=== PATIENT | female | born 1985 | race Two or more races ===

== ENCOUNTER 2018-10-03 08:30 | Day surgery (SDC) | payer OTHER ==
[2018-10-02 15:16] VITALS: BMI 36.8
[2018-10-03] MEDS ORDERED: ACETAMINOPHEN INJECTION 100 ML IVPB ONE (12:38)
[2018-10-03 13:26] LABS: CSF APPEARANCE CLEAR; CSF COLOR COLORLESS; CSF WBC 16
[2018-10-03 13:53] LABS: BF GLUCOSE (CSF ONLY) 57 mg/dL (40-70)
[2018-10-03 16:43] VITALS: BP 120/70; PULSE 60
[2018-10-03 18:03] VITALS: TEMP 97.8
== END 2018-10-03 17:15 | disposition home or self-care (01) ==
LOC: JRADIR 08:30
PROVIDERS: ATTEND Psychiatry & Neurology Neurology
PROC: 009U3ZX Drainage of Spinal Canal, Percutaneous Approach, Diagnostic (ICD-10-PCS; principal; 2018-10-03)
PROC: B01BZZZ Fluoroscopy of Spinal Cord (ICD-10-PCS; 2018-10-03)
DX: R51 Headache (principal)
CPT/HCPCS: 36415; 62272; 76000-TC-FY; 76098-TC-FY; 82945; 83916; 84157; 84703; 87899; J0131

== ENCOUNTER 2020-01-22 09:53 | Emergency (ER) | payer OTHER ==
[2020-01-22 10:00] VITALS: BMI 34.1
--- OUTSIDE RECORDS SUMMARY | 2020-01-22 10:20 | XMS ---
:1985 [facility] Care Team Providers Name Role Phone ED STAFF PHYSICIANMICHAELLE Unavailable Unavailable ED STAFF PHYSICIAN, STAFF Unavailable Unavailable Re-disclosure Warning The records that you are about to access may contain information from federally- assisted alcohol or drug abuse programs. If such information is present, then the following federally mandated warning applies: This information has been disclosed to you from records protected by federal confidentiality rules (42 CFR part 2). The federal rules prohibit you from making any further disclosure of this information unless further disclosure is expressly permitted by the written consent of the person to whom it pertains or as otherwise permitted by 42 CFR part 2. A general authorization for the release of medical or other information is NOT sufficient for this purpose. The Federal rules restrict any use of the information to criminally investigate or prosecute any alcohol or drug abuse patient.The records that you are about to access may contain highly sensitive health information, the redisclosure of which is protected by Article 27-F of the [facility] Public Health law. If you continue you may haveaccess to information: Regarding HIV / AIDS; Provided by facilities licensed or operated by the [facility] Office of Mental Health; or Provided by the [facility] Office for People With Developmental Disabilities. If such information is present, then the following [facility] mandated warning applies: This information has been disclosed to you from confidential records which are protected by state law. State law prohibits you from making any further disclosure of this information without the specific written consent of the person to whom it pertains, or as otherwise permitted by law. Any unauthorized further disclosure in violation of state law may result in a fine or shelter sentence or both. A general authorization for the release of medical or other information is NOT sufficient authorization for further disclosure. Encounters Encounter Providers Location Date Indications Data Source(s ) Emergency Attender: MICHAELLE ED H 03/17/2019 Ayan daja Cortez STAFF 12:08:00 PM EST Medical C enter PHYSICIANAttender: - 03/17/2019 STAFF ED STAFF 03:43:00 PM EST PHYSICIANAdmitter: MICHAELLE ED STAFF PHYSICIAN Patient discharged. Emergency H 12/06/2018 06:53:00 PM EDT - 019 [facility] 10:41:00 PM EDT Patient discharged. Medications Medication Brand Start Product Dose Route Administrative Pharmacy [facility] Indications Reaction Description Data Name Date Form Instructions Instructions Source(s) methylPREDN 1 complet [facility] ISolone 4 ed [place] mg Medical tablets,dos Center e pack, Ordered By: Ada Grace s: 1 package oral daily Clindamycin clinda 1 complet Deepak nt 300 MG Oral mycin ed [place] Capsule HCl Medical clindamycin 300 mg Center HCl 300 mg Capsul Capsule, e, Ordered By: Rickiee Rach d By: Rach Malloy, s: 1 PADire capsule ctions oral three : 1 times a day capsul e oral three times a day Insurance Providers Payer name Policy type Policy ID Covered Covered republican's Policy P dionte / Coverage republican ID relationship to [facility] type hughes CURRY LOOKK [id number] SP [id number] NON CAP CURRY W [id number] 01 [id number] 500 CURRY W [id number] 01 [id number] 500 Mitesh Vision [id number] S [id number] D Dental [id number] S [id number] 500 Dentaquest [facility] Medicaid [id number] S [id number] Regular Clinic Visit [facility] [id number] S [id number] [place] Medicaid Problems, Conditions, and Diagnoses Code Display Name Description Problem Effective Data Source (s) Type Dates Y99.9 Unspecified external UNSPECIFIED EXTERNAL Diagnosis 03/17 [facility] cause status CAUSE STATUS 12:08:00 PM Medical C enter EST Y92.[address] UNSP PLACE IN UNSP Diagnosis 019 [facility] unspecified NON-INSTITUT 12:08:00 PM Medical Ce nter non-institutional (PRIVATE) RESIDENCE EST (private) residence PLACE as the place of occurrence of the external cause Y93.9 Activity, unspecified ACTIVITY, UNSPECIFIED Diagnosis [facility] 12:08:00 PM Medical Cente r EST X58.XXX Exposure to other EXPOSURE TO OTHER Diagnosis 03/17/2019 [facility] A specified factors, SPECIFIED FACTORS, 12:08:00 PM Medical Center initial encounter INITIAL ENCOUNTER EST L01.00 Impetigo, unspecified IMPETIGO, UNSPECIFIED Diagnosis [facility] 12:08:00 PM Medical Cente r EST T45.0X5 Adverse effect of ADVERSE EFFECT OF Diagnosis 03/17/2019 [facility] A antiallergic and ANTIALLERGIC [facility]08[facility], ANTIEMETIC DRUGS, EST initial encounter INIT T44.3X5 Adverse effect of ADVERSE EFFECT OF Diagnosis 03/17/2019 [facility] A other PARASYMPATHOLYTICS 12:08:00 PM Medic al Center parasympatholytics AND SPASMOLYTICS, EST [anticholinergics and INIT antimuscarinics] and spasmolytics, initial encounter G43.909 Migraine, MIGRAINE, UNSP, NOT Diagnosis 12/06/2018 [facility] unspecified, not INTRACTABLE, WITHOUT 06:53:00 PM Medical Center intractable, without STATUS MIGRAINOSUS EDT status migrainosus R07.9 Chest pain, CHEST PAIN, Diagnosis 12/06/2018 [facility] unspecified UNSPECIFIED 06:53:[address] [facility] ter EDT E66.8 Other obesity Other obesity Diagnosis 06/28/2018 [facility] 03:55:27 PM ([facility]) Results ID Date Data Source Liver 03/17/2019 02:14:00 PM EST [facility] Profile.[id number] Name Value Range Interpretation Description Data Sup porting Code Source(s) Document(s ) Alkaline 38-126 <content [facility] phosphatase styleCode="Bold"> [place] [Enzymatic Alkaline Medical activity/volume] Phosphatase (ALP) Cente r in Serum or Plasma </content>66 IU/L<content styleCode="Italic s"> (38-126 IU/L)</content> Aspartate 14-36 <content [facility] aminotransferase styleCode="Bold"> John hs [Enzymatic Aspartate Medical activity/volume] Aminotransferase Center in Serum or Plasma (AST) </content>20 IU/L<content styleCode="Italic s"> (14-36 IU/L)</content> Alanine 7-30 <content [facility] aminotransferase styleCode="Bold"> John hs [Enzymatic Alanine Medical activity/volume] Aminotransferase Center in Serum or Plasma (ALT) </content>13 IU/L<content styleCode="Italic s"> (7-30 IU/L)</content> Albumin 3.5-5.0 <content Saint [Mass/volume] in styleCode="Bold"> John hs Serum or Plasma Albumin Medical </content>3.7 Center G/DL<content styleCode="Italic s"> (3.5-5.0 G/DL)</content> UNK 0.0-0.3 <content Saint styleCode="Bold"> [facility] Bilirubin, Direct Medical </content>< 0.2 Center MG/DL<content styleCode="Italic s"> (0.0-0.3 MG/DL)</content> Bilirubin.total 0.2-1.3 <content Saint [Mass/volume] in styleCode="Bold"> John hs Serum or Plasma Bilirubin Total Medical </content>0.4 Center MG/DL<content styleCode="Italic s"> (0.2-1.3 MG/DL)</content> ID Date Data Source HematologyRou.[id number] 03/17/2019 02:14:00 PM EST Deepak nt [facility] 0500 Name Value Range Interpretation Description Data Sup porting Code Source(s) Document(s ) Leukocytes 4.4-11.0 <content Saint [#/volume] in styleCode="Bold [place] Blood by ">White Blood Medical Automated count Cell Count Center </content>7.68 KCUMM<content styleCode="Ital ics"> (4.4-11.0 KCUMM)</content > Erythrocytes 4.0-5.1 <content Saint [#/volume] in styleCode="Bold [place] Blood by ">Red Blood Medical Automated count Cell Count Center </content>4.74 MCUMM<content styleCode="Ital ics"> (4.0-5.1 MCUMM)</content > Erythrocyte mean 26.0-34. <content [facility] corpuscular 0 styleCode="Bold [place] hemoglobin ">Mean Medical [Entitic mass] Corposcular Center by Automated Hemoglobin count </content>28.1 PG<content styleCode="Ital ics"> (26.0-34.0 PG)</content> Hematocrit 36.0-46. <content Saint [Volume 0 styleCode="Bold [place] Fraction] of ">Hematocrit Medical Blood by </content>40.6 Center Automated count %<content styleCode="Ital ics"> (36.0-46.0 %)</content> Erythrocyte mean 80.0-100 <content Saint corpuscular .0 styleCode="Bold [place] volume [Entitic ">Mean Medical volume] by Corpuscular Center Automated count Volume </content>85.7 FL<content styleCode="Ital ics"> (80.0-100.0 FL)</content> Hemoglobin 12.3-16. <content Saint [Mass/volume] in 0 styleCode="Bold [place] Blood ">Hemoglobin Medical </content>13.3 Center G/DL<content styleCode="Ital ics"> (12.3-16.0 G/DL)</content> Platelets 130-400 <content Saint [#/volume] in styleCode="Bold [place] Blood by ">Platelet Medical Automated count Count Center </content>244 KCUMM<content styleCode="Ital ics"> (130-400 KCUMM)</content > Erythrocyte 11.5-14. <content [facility] distribution 5 styleCode="Bold [place] width [Ratio] by ">Red Cell Medical Automated count Distribution Center Width </content>13.3 %<content styleCode="Ital ics"> (11.5-14.5 %)</content> Erythrocyte mean 32.0-37. <content [facility] corpuscular 0 styleCode="Bold [place] hemoglobin ">Mean Corpus. Medical concentration Hgb Center [Mass/volume] by Concentration Automated count (MCHC) </content>32.8 G/DL<content styleCode="Ital ics"> (32.0-37.0 G/DL)</content> Platelet mean 8.0-11.0 <content Saint volume [Entitic styleCode="Bold [place] volume] in Blood ">Mean Platelet Medical by Automated Volume Center count </content>9.9 FL<content styleCode="Ital ics"> (8.0-11.0 FL)</content> Lymphocytes 24.0-44. <content Saint [#/volume] in 0 styleCode="Bold [place] Blood by ">Lymphocyte Medical Automated count </content>27.5 Center %<content styleCode="Ital ics"> (24.0-44.0 %)</content> UNK 1.0-4.8 <content Saint styleCode="Bold [place] ">Lymphocyte Medical Count Center </content>2.11 KCUMM<content styleCode="Ital ics"> (1.0-4.8 KCUMM)</content > Neutrophils 36-66 <content Saint [#/volume] in styleCode="Bold [place] Blood by ">Neutrophil Medical Automated count </content>63.0 Center %<content styleCode="Ital ics"> (36-66 %)</content> UNK 1.6-7.3 <content Saint styleCode="Bold [place] ">Neutrophil Medical Count Center </content>4.84 KCUMM<content styleCode="Ital ics"> (1.6-7.3 KCUMM)</content > Monocytes 3.0-10.0 <content Saint [#/volume] in styleCode="Bold [place] Blood by ">Monocyte Medical Automated count </content>6.6 Center %<content styleCode="Ital ics"> (3.0-10.0 %)</content> UNK 0.0-0.6 <content Saint styleCode="Bold [place] ">Eosinophil Medical Count Center </content>0.16 KCUMM<content styleCode="Ital ics"> (0.0-0.6 KCUMM)</content > UNK 0.2-0.9 <content Saint styleCode="Bold [place] ">Monocyte Medical Count Center </content>0.51 KCUMM<content styleCode="Ital ics"> (0.2-0.9 KCUMM)</content > Basophils 0.0-1.0 <content Saint [#/volume] in styleCode="Bold [place] Blood by ">Basophil Medical Automated count </content>0.5 Center %<content styleCode="Ital ics"> (0.0-1.0 %)</content> Eosinophils 0-5.0 <content Saint [#/volume] in styleCode="Bold [place] Blood by ">Eosinophil Medical Automated count </content>2.1 Center %<content styleCode="Ital ics"> (0-5.0 %)</content> UNK 0.0 <content Saint styleCode="Bold [place] ">Nucleated Red Medical Blood Cell Center Count </content>0.00 KCUMM<content styleCode="Ital ics"> (0.0 KCUMM)</content > UNK 0.0-0.3 <content Saint styleCode="Bold [place] ">Basophil Medical Count Center </content>0.04 KCUMM<content styleCode="Ital ics"> (0.0-0.3 KCUMM)</content > UNK 0 <content Saint styleCode="Bold [place] ">Nucleated Red Medical Blood Cell Center </content>0.0 /100<content styleCode="Ital ics"> (0 /100)</content> UNK 0-0.1 <content Saint styleCode="Bold [place] ">Immature Medical Granulocyte Center Count </content>0.02 KCUMM<content styleCode="Ital ics"> (0-0.1 KCUMM)</content > UNK < 1 <content Saint styleCode="Bold [place] ">Immature Medical Granulocyte Center Ratio </content>0.3 %<content styleCode="Ital ics"> (< 1 %)</content> ID Date Data Source GFR(Creatinine).[id number] 03/17/2019 02:14:00 PM EST Deepak nt [facility] 0-0500 Name Value Range Interpretation Code Description Data Isa rce(s) Supporting Document(s ) UNK > 60 <content [facility] styleCode="Bold"> Medical Cent er EGFR </content>123 GFR<content styleCode="Italic s"> (> 60 GFR)</content> ID Date Data Source [facility].[id number] 03/17/2019 02:14:00 PM DARSHANA [facility] Name Value Range Interpretation Description Data Sup porting Code Source(s) Document(s ) Carbon dioxide, 22-30 <content Saint total styleCode="Bold"> Diego [Moles/volume] in Carbon Dioxide Medical Serum or Plasma </content>27 Center MEQ/L<content styleCode="Italic s"> (22-30 MEQ/L)</content> Sodium 137-145 <content Saint [Moles/volume] in styleCode="Bold"> Juve phs Serum or Plasma Sodium Medical </content>139 Center MEQ/L<content styleCode="Italic s"> (137-145 MEQ/L)</content> Chloride 98-107 <content Saint [Moles/volume] in styleCode="Bold"> Juve phs Serum or Plasma Chloride Medical </content>106 Center MEQ/L<content styleCode="Italic s"> (98-107 MEQ/L)</content> Potassium 3.5-5.3 <content Saint [Moles/volume] in styleCode="Bold"> Juve phs Serum or Plasma Potassium Medical </content>3.8 Center MEQ/L<content styleCode="Italic s"> (3.5-5.3 MEQ/L)</content> Creatinine 0.5-1.3 <content Saint [Mass/volume] in styleCode="Bold"> John hs Serum or Plasma Creatinine Medical </content>0.6 Center MG/DL<content styleCode="Italic s"> (0.5-1.3 MG/DL)</content> Glucose 74-106 <content Saint [Mass/volume] in styleCode="Bold"> John hs Serum or Plasma Glucose Medical </content>90 Center MG/DL<content styleCode="Italic s"> (74-106 MG/DL)</content> UNK 7-17 <content Saint styleCode="Bold"> Diego BUN </content>10 Medical MG/DL<content Center styleCode="Italic s"> (7-17 MG/DL)</content> Calcium 8.4-10. <content Saint [Mass/volume] in 2 styleCode="Bold"> John hs Serum or Plasma Calcium Medical </content>9.1 Center MG/DL<content styleCode="Italic s"> (8.4-10.2 MG/DL)</content> UNK > 60 <content Saint styleCode="Bold"> [place] EGFR Medical </content>123 Center GFR<content styleCode="Italic s"> (> 60 GFR)</content> Aspartate 14-36 <content Saint aminotransferase styleCode="Bold"> John hs [Enzymatic Aspartate Medical activity/volume] Aminotransferase Center in Serum or Plasma (AST) </content>20 IU/L<content styleCode="Italic s"> (14-36 IU/L)</content> Bilirubin.total 0.2-1.3 <content Saint [Mass/volume] in styleCode="Bold"> John hs Serum or Plasma Bilirubin Total Medical </content>0.4 Center MG/DL<content styleCode="Italic s"> (0.2-1.3 MG/DL)</content> Alanine 7-30 <content Saint aminotransferase styleCode="Bold"> John hs [Enzymatic Alanine Medical activity/volume] Aminotransferase Center in Serum or Plasma (ALT) </content>13 IU/L<content styleCode="Italic s"> (7-30 IU/L)</content> Alkaline 38-126 <content [facility] phosphatase styleCode="Bold"> [place] [Enzymatic Alkaline Medical activity/volume] Phosphatase (ALP) Cente r in Serum or Plasma </content>66 IU/L<content styleCode="Italic s"> (38-126 IU/L)</content> Albumin 3.5-5.0 <content Saint [Mass/volume] in styleCode="Bold"> John hs Serum or Plasma Albumin Medical </content>3.7 Center G/DL<content styleCode="Italic s"> (3.5-5.0 G/DL)</content> ID Date Data Source Microbiology.[id number] 03/17/2019 02:06:[address] [facility] 500 Name Value Range Interpretation Code Description Data Isa rce(s) Supporting Document(s ) UNK <item><content [facility] styleCode="Bold"> Medical [facility] er Culture Status </content>
<t able><tbody><tr>< td>Specimen Number:</td><td>[id number]</td></tr ><tr><td>Sample Collection Date/Time: </td><td>03/17/20 2:06 PM</td></tr><tr>< td>Specimen Source:</td><td>F MARCELLE</td></tr><tr> <td>Gram Stain:</td><td>MA [place] GRAM POSITIVE BACILLI </td></tr><tr><td >Culture Status:</td><td>P reliminary </td></tr><tr><td >Culture Report:</td><td>C ulture in progress </td></tr><tr><td >Wound Culture:</td><td> Collection Plate Date: 03/17/2019 14:22 </td></tr></tbody ></table></item> UNK <item><content [facility] styleCode="Bold"> Medical [facility] er Culture Report </content>
<t able><tbody><tr>< td>Specimen Number:</td><td>[id number]</td></tr ><tr><td>Sample Collection Date/Time: </td><td>03/17/20 2:06 PM</td></tr><tr>< td>Specimen Source:</td><td>F MARCELLE</td></tr><tr> <td>Wound Culture:</td><td> Collection Plate Date: 03/17/2019 14:22 </td></tr><tr><td >Culture Status:</td><td>P reliminary </td></tr><tr><td >Culture Report:</td><td>C ulture in progress </td></tr><tr><td >Gram Stain:</td><td>MA [place] GRAM POSITIVE BACILLI </td></tr></tbody ></table></item> ID Date Data Source Urinalysis.[id number] 12/06/2018 07:53:[address] [facility] 0 Name Value Range Interpretation Description Data Sup porting Code Source(s) Document(s ) UNK CLEAR <content Saint styleCode="[facility] d">Urine Medical Clarity Center </content>SARAH R <content styleCode="Ami lics"> (CLEAR )</content> Color of Urine YELLOW <content Saint styleCode="[facility] d">Color, Medical Urine Center </content>YELL OW <content styleCode="Ami lics"> (YELLOW )</content> Glucose NEGATIVE <content Saint [Mass/volume] styleCode="Christy Weekss in Urine by d">Urine Medical Test strip Glucose Center </content>NEGA TIVE MG/DL<content styleCode="Ami lics"> (NEGATIVE MG/DL)</conten t> UNK NEGATIVE <content Saint styleCode="Christy [place] d">Urine Medical Bilirubin Center </content>NEGA TIVE <content styleCode="Ami lics"> (NEGATIVE )</content> Specific 1.015-1.02 Above high <content Saint gravity of 5 normal styleCode="Christy [place] Urine by Test d">Urine Medical strip Specific Center [place] </content>>= 1.030 H<content styleCode="Ami lics"> (1.015-1.025 )</content> Ketones NEGATIVE <content Saint [Mass/volume] styleCode="Christy [place] in Urine by d">Urine Medical Test strip Ketone Center </content>NEGA TIVE MG/DL<content styleCode="Ami lics"> (NEGATIVE MG/DL)</conten t> Hemoglobin NEGATIVE <content Saint [Presence] in styleCode="Christy [place] Urine by Test d">Urine Blood Medical strip </content>NEGA Center TIVE <content styleCode="Ami lics"> (NEGATIVE )</content> Urobilinogen 0.2-1.0 <content Saint [Units/volume] styleCode="Christy [place] in Urine by d">Urine Medical Test strip Urobilinogen Center </content>0.2 MG/DL<content styleCode="Ami lics"> (0.2-1.0 MG/DL)</conten t> Leukocyte NEGATIVE <content Saint esterase styleCode="Christy [place] [Presence] in d">Urine Medical Urine by Test Leukocyte Center strip </content>NEGA TIVE <content styleCode="Ami lics"> (NEGATIVE )</content> Nitrite NEGATIVE <content Saint [Presence] in styleCode="Christy [place] Urine by Test d">Urine Medical strip Nitrite Center </content>NEGA TIVE <content styleCode="Ami lics"> (NEGATIVE )</content> Protein NEGATIVE <content Saint [Mass/volume] styleCode="Christy [place] in Urine by d">Urine Medical Test strip Protein Center </content>NEGA TIVE MG/DL<content styleCode="Ami lics"> (NEGATIVE MG/DL)</conten t> pH of Urine by 4.5-8.0 <content Saint Test strip styleCode="Christy [place] d">Urine pH Medical </content>6.0 Center <content styleCode="Ami lics"> (4.5-8.0 )</content> ID Date Data Source LIPID.[id number] 12/06/2018 07:49:00 PM EDT [facility] Name Value Range Interpretation Description Data Sup porting Code Source(s) Document(s ) UNK < 100 Above high normal <content Saint styleCode="Christy [place] d">LDL-Cholest Medical kash Center </content>109 MG/DL H<content styleCode="Ami lics"> (< 100 MG/DL)</conten t> Triglyceride < 150 <content Saint [Mass/volume] in styleCode="[facility] Serum or Plasma d">Triglycerid Medical es Center </content>64 MG/DL<content styleCode="Ami lics"> (< 150 MG/DL)</conten t> UNK > 60 <content Saint styleCode="[facility] d">HDL- Medical Cholesterol Center </content>71 MG/DL<content styleCode="Ami lics"> (> 60 MG/DL)</conten t> Cholesterol -<200 <content Saint [Mass/volume] in styleCode="[facility] Serum or Plasma d">Cholesterol Medical </content>193 Center MG/DL<content styleCode="Ami lics"> (-<200 MG/DL)</conten t> ID Date Data Source HematologyRou.[id number] 12/06/2018 07:49:00 PM EDT [facility] 0400 Name Value Range Interpretation Description Data Sup porting Code Source(s) Document(s ) Leukocytes 4.4-11.0 <content Saint [#/volume] in styleCode="Bold [place] Blood by ">White Blood Medical Automated count Cell Count Center </content>9.28 KCUMM<content styleCode="Ital ics"> (4.4-11.0 KCUMM)</content > Erythrocyte mean 80.0-100 <content Saint corpuscular .0 styleCode="Bold [place] volume [Entitic ">Mean Medical volume] by Corpuscular Center Automated count Volume </content>85.7 FL<content styleCode="Ital ics"> (80.0-100.0 FL)</content> Erythrocytes 4.0-5.1 <content Saint [#/volume] in styleCode="Bold [place] Blood by ">Red Blood Medical Automated count Cell Count Center </content>4.97 MCUMM<content styleCode="Ital ics"> (4.0-5.1 MCUMM)</content > Erythrocyte mean 26.0-34. <content Saint corpuscular 0 styleCode="Bold [place] hemoglobin ">Mean Medical [Entitic mass] Corposcular Center by Automated Hemoglobin count </content>27.8 PG<content styleCode="Ital ics"> (26.0-34.0 PG)</content> Hemoglobin 12.3-16. <content Saint [Mass/volume] in 0 styleCode="Bold [place] Blood ">Hemoglobin Medical </content>13.8 Center G/DL<content styleCode="Ital ics"> (12.3-16.0 G/DL)</content> Hematocrit 36.0-46. <content Saint [Volume 0 styleCode="Bold [place] Fraction] of ">Hematocrit Medical Blood by </content>42.6 Center Automated count %<content styleCode="Ital ics"> (36.0-46.0 %)</content> Erythrocyte 11.5-14. <content Saint distribution 5 styleCode="Bold [place] width [Ratio] by ">Red Cell Medical Automated count Distribution Center Width </content>13.5 %<content styleCode="Ital ics"> (11.5-14.5 %)</content> Platelets 130-400 <content Saint [#/volume] in styleCode="Bold [place] Blood by ">Platelet Medical Automated count Count Center </content>256 KCUMM<content styleCode="Ital ics"> (130-400 KCUMM)</content > Platelet mean 8.0-11.0 <content Saint volume [Entitic styleCode="Bold [place] volume] in Blood ">Mean Platelet Medical by Automated Volume Center count </content>10.2 FL<content styleCode="Ital ics"> (8.0-11.0 FL)</content> UNK 0 <content Saint styleCode="Bold [place] ">Nucleated Red Medical Blood Cell Center </content>0.0 /100<content styleCode="Ital ics"> (0 /100)</content> Erythrocyte mean 32.0-37. <content Saint corpuscular 0 styleCode="Bold [place] hemoglobin ">Mean Corpus. Medical concentration Hgb Center [Mass/volume] by Concentration Automated count (MCHC) </content>32.4 G/DL<content styleCode="Ital ics"> (32.0-37.0 G/DL)</content> UNK 0.0 <content styleCode="Bold [place] ">Nucleated Red Medical Blood Cell Center Count </content>0.00 KCUMM<content styleCode="Ital ics"> (0.0 KCUMM)</content > ID Date Data Source GFR(Creatinine).[id number] 12/06/2018 07:49:[address] [facility] 0-0400 Name Value Range Interpretation Code Description Data Isa rce(s) Supporting Document(s ) UNK > 60 <content [facility] styleCode="Bold"> Medical Cent er EGFR </content>104 GFR<content styleCode="Italic s"> (> 60 GFR)</content> ID Date Data Source Coagulation 12/06/2018 07:49:00 PM [facility] ical Center Rout.[id number] EDT Name Value Range Interpretation Description Data Sup porting Code Source(s) Document(s ) UNK <content [facility] styleCode="Bold" Diego >D-Dimer Medical </content><200 Center ngFEU (Reference Range: not available)
aPTT in 25.1-36. <content Platelet poor 5 styleCode="Bold" [place] plasma by >Partial Medical Coagulation Thromboplastin Center assay Time </content>31.7 SEC<content styleCode="Itali cs"> (25.1-36.5 SEC)</content> INR in 0.80-1.2 <content Platelet poor 0 styleCode="Bold" [place] plasma by >[facility] </content>1.12 Center assay #<content styleCode="Itali cs"> (0.80-1.20 #)</content> UNK 9.0-13.0 <content styleCode="Bold" Diego >[facility] </content>12.4 Center SEC<content styleCode="Itali cs"> (9.0-13.0 SEC)</content> ID Date Data Source [id number] 12/06/2018 07:49:[address] [facility] -0400 Name Value Range Interpretation Description Data Sup porting Code Source(s) Document(s ) Troponin < 0.034 <content [facility] I.cardiac styleCode="Bold Diego [Mass/volume ">Troponin I Medical ] in Serum </content>< Center or Plasma 0.012 NG/ML<content styleCode="Ital ics"> (< 0.034 NG/ML)</content > ID Date Data Source [id number] 12/06/2018 07:49:00 PM EDT [facility] Name Value Range Interpretation Description Data Sup porting Code Source(s) Document(s ) Sodium 137-145 <content [facility] [Moles/volume] styleCode="Christy Diego in Serum or d">Sodium Medical Plasma </content>141 Center MEQ/L<content styleCode="Ami lics"> (137-145 MEQ/L)</conten t> Potassium 3.5-5.3 <content [facility] [Moles/volume] styleCode="Christy [place] in Serum or d">Potassium Medical Plasma </content>4.3 Center MEQ/L<content styleCode="Ami lics"> (3.5-5.3 MEQ/L)</conten t> Chloride 98-107 <content [facility] [Moles/volume] styleCode="Christy [place] in Serum or d">Chloride Medical Plasma </content>105 Center MEQ/L<content styleCode="Ami lics"> (98-107 MEQ/L)</conten t> Creatinine 0.5-1.3 <content [facility] [Mass/volume] styleCode="Christy [place] in Serum or d">Creatinine Medical Plasma </content>0.7 Center MG/DL<content styleCode="Ami lics"> (0.5-1.3 MG/DL)</conten t> UNK 7-17 <content [facility] styleCode="Christy Diego d">BUN Medical </content>12 Center MG/DL<content styleCode="Ami lics"> (7-17 MG/DL)</conten t> UNK > 60 <content [facility] styleCode="Chritsy Diego d">EGFR Medical </content>104 Center GFR<content styleCode="Ami lics"> (> 60 GFR)</content> Calcium 8.4-10.2 <content [facility] [Mass/volume] styleCode="Christy [place] in Serum or d">Calcium Medical Plasma </content>9.3 Center MG/DL<content styleCode="Ami lics"> (8.4-10.2 MG/DL)</conten t> Carbon 22-30 <content [facility] dioxide, total styleCode="Christy Diego [Moles/volume] d">Carbon Medical in Serum or Dioxide Center Plasma </content>25 MEQ/L<content styleCode="Ami lics"> (22-30 MEQ/L)</conten t> Glucose 74-106 <content [facility] [Mass/volume] styleCode="Christy Diego in Serum or d">Glucose Medical Plasma </content>76 Center MG/DL<content styleCode="Ami lics"> (74-106 MG/DL)</conten t> Procedure Social History Code Duration Value Status Description Data Source(s ) Smoking 03/17/2019 Denies Ever completed Denies Ever Smoked [facility] 01:43:00 PM EST Smoked Medical C enter Smoking 03/17/2019 Denies Ever completed Denies Ever Smoked [facility] 01:00:00 PM EST Smoked Medical C enter Smoking 03/17/2019 Denies Ever completed Denies Ever Smoked [facility] 12:52:00 PM EST Smoked Medical C enter Smoking 12/06/2018 Denies Ever completed Denies Ever Smoked [facility] 08:07:00 PM EDT Smoked Medical C enter Smoking 12/06/2018 Denies Ever completed Denies Ever Smoked [facility] 06:58:00 PM EDT Smoked Medical C enter Vital Signs ID Date Data Source UNK Name Value Range Interpretation Code Description Data Source(s) Body temperature 37.730019 37.052023 [facility] Respiratory rate 18 /min 18 /min [facility] Oxygen saturation 100 % 100 % [facility] by Pulse oximetry Heart rate 64 /min 64 /min [facility] Diastolic blood 78 mm[Hg] 78 mm[Hg] [facility] pressure [facility] Center Systolic blood 135 mm[Hg] 135 mm[Hg] [facility] Body temperature 37.288040 37.637786 [facility] Respiratory rate 18 /min 18 /min [facility] Oxygen saturation 99 % 99 % [facility] by Pulse oximetry Heart rate 60 /min 60 /min [facility] Diastolic blood 63 mm[Hg] 63 mm[Hg] [facility] pressure Medical Center Systolic blood 112 mm[Hg] 112 mm[Hg] [facility] Body temperature 37.432474 37.648092 [facility] Respiratory rate 18 /min 18 /min [facility] Oxygen saturation 97 % 97 % [facility] by Pulse oximetry Heart rate 64 /min 64 /min [facility] Diastolic blood 87 mm[Hg] 87 mm[Hg] [facility] Center Systolic blood 136 mm[Hg] 136 mm[Hg] [facility] Heart rate 58 /min 58 /min [facility] Body weight 95.177444 kg 95.397628 kg [facility] Body temperature 36.715477 36.643731 [facility] Respiratory rate 17 /min 17 /min [facility] Oxygen saturation 99 % 99 % [facility] by Pulse oximetry Heart rate 58 /min 58 /min [facility] Body height 162.430428 162.844428 cm [facility] Diastolic blood 83 mm[Hg] 83 mm[Hg] [facility] Center Systolic blood 140 mm[Hg] 140 mm[Hg] [facility] Body mass index 36.0 kg/m2 36.0 kg/m2 [facility] (BMI) [Ratio] Medical Lulu ter Patient Treatment Plan of Care Planned Activity Planned Date Details Description Data Source (s) methylPREDNISolone 4 mg [facility] tablets,dose pack, Ordered By: ESSIE Cortezirections: 1 package oral daily Clindamycin 300 MG Oral Capsule [facility]
--- NOTE | 2020-01-22 11:27 | PDOC ---
History of Present Illness - General Chief Complaint: Foreign Body (FB) Stated Complaint: OBJECT LOGGED IN THROAT Time Seen by Provider: 01/22/20 10:53 History Source: Patient - History of Present Illness Initial Comments: 01/22/20 11:22 34F w/no PMH p/w throat pain s/p swallowing mouth guard. She reports waking up being unable to locate her soft plastic mouth guard, and became concerned when she noted 7/10 throat pain. She denies any fevers, chills, cough, change in voice, nausea, vomiting. She reports drinking a small amount of water this morning which worsened the pain, but has not attempted po solids. No similar past episodes. Past History - Medical History Allergies/Adverse Reactions: Allergies Allergy/AdvReac Type Severity Reaction Status Date / Time levofloxacin [From Levaquin] Allergy Severe Difficulty Verified 01/22/20 09:55 Breathing Penicillins Allergy Intermediate Hives Verified 01/22/20 09:55 Home Medications: Ambulatory Orders NK [No Known Home Medication] 10/02/18 Anemia: No Asthma: No Cancer: No Cardiac Disorders: No CVA: No COPD: No CHF: No Dementia: No Diabetes: No GI Disorders: No Disorders: No HTN: No Hypercholesterolemia: No Liver Disease: No Seizures: No Thyroid Disease: No - Surgical History Abdominal Surgery: No Appendectomy: No Cardiac Surgery: No Cholecystectomy: Yes Lung Surgery: No Neurologic Surgery: No Orthopedic Surgery: Yes (carpal tunnel b hands) - Reproductive History Is Patient Now?: No (#): 1 Para: 1 - Immunization History Immunization Up to Date: Yes - Psycho-Social/Smoking History Smoking History: Never smoked Have you smoked in the past 12 months: No Number of Cigarettes Smoked Daily: 0 Cigars Per Day: 0 - Substance Abuse Hx (Audit-C & DAST Scrn) How often the patient has a drink containing alcohol: Never Score: In Men: 4 or > Positive; In Women: 3 or > Positive: 0 Screen Result (Pos requires Nsg. Audit-10AR): Negative In the last yr the pt used illegal drug/Rx for NonMed reason: No Score: Yes response is considered Positive: 0 Screen Result (Positive result requires Nsg. DAST-10): Negative Review of Systems - Review of Systems Able to Perform ROS?: Yes Comments:: 01/22/20 12:54 GENERAL/CONSTITUTIONAL: No fever or chills. No weakness. HEAD, EYES, EARS, NOSE AND THROAT: Throat pain, globus sensation. No change in vision. No ear pain or discharge. CARDIOVASCULAR: No chest pain or shortness of breath RESPIRATORY: No cough, wheezing, or hemoptysis. GASTROINTESTINAL: No nausea, vomiting, diarrhea or constipation. GENITOURINARY: No dysuria, frequency, or change in urination. MUSCULOSKELETAL: No joint or muscle swelling or pain. No neck or back pain. SKIN: No rash NEUROLOGIC: No headache, vertigo, loss of consciousness, or change in strength/sensation. ENDOCRINE: No increased thirst. No abnormal weight change HEMATOLOGIC/LYMPHATIC: No anemia, easy bleeding, or history of blood clots. ALLERGIC/IMMUNOLOGIC: No hives or skin allergy. *Physical Exam - Vital Signs Last Vital Signs Temp Pulse Resp BP Pulse Ox 98.3 F 66 18 112/68 100 01/22/20 09:56 01/22/20 09:56 01/22/20 09:56 01/22/20 09:56 01/22/20 09:56 - Physical Exam 01/22/20 12:55 GENERAL: Awake, alert, and fully oriented, in no acute distress HEAD: No signs of trauma, normocephalic, atraumatic EYES: PERRLA, EOMI, sclera anicteric, conjunctiva clear ENT: Auricles normal inspection, hearing grossly normal, nares patent, oropharynx clear without exudates. Moist mucosa NECK: Normal ROM, supple, no lymphadenopathy, JVD, or masses LUNGS: No distress, speaks full sentences, clear to auscultation bilaterally HEART: Regular rate and rhythm, normal S1 and S2, no murmurs, rubs or gallops, peripheral pulses normal and equal bilaterally. ABDOMEN: Soft, nontender, normoactive bowel sounds. No guarding, no rebound. No masses EXTREMITIES : Normal inspection, Normal range of motion, no edema. No clubbing or cyanosis NEUROLOGICAL: Cranial nerves II through XII grossly intact. Normal speech, normal gait, no focal sensorimotor deficits SKIN: Warm, Dry, normal turgor, no rashes or lesions noted Medical Decision Making - Medical Decision Making 01/22/20 12:55 34F w/no PMH p/w throat pain, globus sensation after waking up being unable to locate mouth guard. Ddx impacted foreign body, throat pain s/p swallowing foreign body, globus sensation. Plan: XR Chest, soft tissue neck, abdomen CT Chest w/o contrast if XR negative. Dispo: Likely discharge pending imaging Discharge - Discharge Information Problems reviewed: Yes Clinical Impression/Diagnosis: Globus sensation Condition: Stable Disposition: HOME - Admission No - Follow up/Referral Referrals: ON STAFF,NOT [Primary Care Provider] - Yoan Bishop MD [Staff Physician] - - Patient Discharge Instructions Patient Printed Discharge Instructions: Sore Throat Additional Instructions: You were seen in the ER for throat pain. Your X rays and CAT scans were normal. Please follow up with your PCP as soon as possible, in the next 3-5 days. Return to the ER if you develop worsening abdominal pain, high fevers, weakness, chest pain, or difficulty breathing. - Post Discharge Activity
--- NOTE | 2020-01-22 11:35 | PDOC ---
Attending Attestation - Resident Resident Name: Abhi Christiansen - ED Attending Attestation I have performed the following: I have examined & evaluated the patient, The case was reviewed & discussed with the resident, I agree w/resident's findings & plan, Exceptions are as noted - HPI HPI: 01/22/20 11:22 34y F no pmhx presents with throat pain. Pt was wearing a soft plastic mouth gaurd last night to sleep and woke up with pain to her throat. Pt denies dysphagia, sob, cp, inability to tolerate oral intake. Pt unable to find her mouth guard. - Physicial Exam PE: 01/22/20 11:22 exam: ENT: Oropharynx patent without erytyhema/induration/assymetry, no fb noted, no stridor on ascultation pulm exam: cta, no wheezing, no respiratory distress abd: soft nontender - Medical Decision Making 01/22/20 11:22 Will obtain soft tissue neck / chest/abd xray will reassesss 01/22/20 12:59 xrays neg for fb will obtain rapid strep ?ct to further evaluate. 01/22/20 17:59 ct neg for foreign body pt feeling improved will dc pt to fu with ENT return preautions were discussed Discharge - Discharge Information Problems reviewed: Yes Clinical Impression/Diagnosis: Sore throat, Globus sensation Condition: Stable Disposition: HOME - Follow up/Referral Referrals: ON STAFF,NOT [Primary Care Provider] - Yoan Bishop MD [Staff Physician] - - Patient Discharge Instructions Patient Printed Discharge Instructions: Sore Throat Additional Instructions: You were seen in the ER for throat pain. Your X rays and CAT scans were normal. Please follow up with your PCP as soon as possible, in the next 3-5 days. Return to the ER if you develop worsening abdominal pain, high fevers, weakness, chest pain, or difficulty breathing. - Post Discharge Activity
[2020-01-22 16:16] VITALS: BP 126/81; PULSE 56; TEMP 98.5
== END 2020-01-22 17:28 | disposition home or self-care (01) ==
LOC: JER 09:53
DX: R09.89 Other specified symptoms and signs involving the circulatory and respiratory systems (principal)
CPT/HCPCS: 70360-TC-FY; 71046-TC-FY; 71250-TC; 74019-TC-FY; 84703; 87070; 87880; 99285-25

== ENCOUNTER 2020-06-16 17:34 | Emergency (ER) | payer OTHER ==
[2020-06-16] MEDS ORDERED: BAMLANIVIMAB 700 MG in SODIUM CHLORIDE 250 ML IVPB ONE (17:54)
[2020-06-16 18:03] VITALS: BMI 37.8
[2020-06-16 20:29] VITALS: BP 116/76; PULSE 89; TEMP 98.8
== END 2020-06-16 20:50 | disposition home or self-care (01) ==
LOC: JER 17:34
PROC: 3E033GC Introduction of Other Therapeutic Substance into Peripheral Vein, Percutaneous Approach (ICD-10-PCS; principal; 2020-06-16)
DX: U07.1 COVID-19 (principal)
CPT/HCPCS: 71046-TC-FY; 99284-25; M0239; Q0239